=== PATIENT | male | born 1970 | race Caucasian/White ===

== ENCOUNTER 2019-07-25 19:55 | Emergency (ER) | payer BC ==
[2019-07-25 20:01] VITALS: TEMP 97.9
[2019-07-25] MEDS ORDERED: ASPIRIN 81 MG PO STA (20:26)
[2019-07-25] MEDS ORDERED: NITROGLYCERIN SL TABS 0.4 MG TAB SUBLINGUAL STA (20:27)
--- NOTE | 2019-07-25 20:29 | ED ---
Chest Pain HPI - General Chief Complaint: Chest Pain Stated Complaint: Chest Pain Time Seen by Provider: 07/25/19 20:03 Source: patient, RN notes reviewed Mode of arrival: ambulatory Limitations: no limitations - History of Present Illness Initial Comments: This is a 49-year-old male with a benign history other than high cholesterol who presents with complaints of the onset of chest pain today reading from his chest to his back and some left arm pressure. He states this happened after walk states over last 3 or 4 days he has been feeling well he has been having some chest pain. He also noted his blood pressure was elevated today 160/95. He's got no known history of heart disease nonsmoker no family history of heart disease early age no family history of lung or aortic dysfunction at early age. He has been doing some yardwork but no other heavy activity he does work as a psychiatrist and has not been seen his medications as usual. His been doing teleconferencing and some office visits. No cough fevers chills sweats sore throat rhinorrhea or other symptoms. Of note patient does state he had been on acute or diarrhea over last year lost about 40 pounds. MD Complaint: chest pain - Related Data Allergies Allergy/AdvReac Type Severity Reaction Status Date / Time No Known Allergies Allergy Verified 07/25/19 20:00 Review of Systems ROS Statement: Those systems with pertinent positive or pertinent negative responses have been documented in the HPI. ROS Other: All systems not noted in ROS Statement are negative. EKG Findings - EKG Results: EKG: interpreted by [facility], sinus rhythm (Normal sinus rhythm of 82. Interval 166 QRS duration 96 QT since QTC 370/[address]-T wave changes.) Past Medical History Past Medical History: Hyperlipidemia History of Any Multi-Drug Resistant Organisms: None Reported Past Surgical History: No Surgical Hx Reported Past Psychological History: No Psychological Hx Reported Smoking Status: Never smoker Past Alcohol Use History: Rare Past Drug Use History: None Reported General Exam - General Exam Comments Initial Comments: This is a well-developed well-nourished awake alert oriented 3 male Limitations: no limitations General appearance: alert, in no apparent distress Head exam: Present: atraumatic, normocephalic, normal inspection Eye exam: Present: normal appearance, PERRL, EOMI. Absent: scleral icterus, conjunctival injection, periorbital swelling ENT exam: Present: normal exam, mucous membranes moist Neck exam: Present: normal inspection, full ROM, other (No stridor JVD or bruits). Absent: tenderness, meningismus, lymphadenopathy Respiratory exam: Present: normal lung sounds bilaterally, chest wall tenderness (Some mild tenderness over the right pectoralis musculature no left-sided chest pain or chest wall pain. This is to palpation.). Absent: respiratory distress, wheezes, rales, rhonchi, stridor Cardiovascular Exam: Present: regular rate, normal rhythm, normal heart sounds. Absent: systolic murmur, diastolic murmur, rubs, gallop, clicks GI/Abdominal exam: Present: soft, normal bowel sounds. Absent: distended, tenderness, guarding, rebound, rigid, bruit, pulsatile mass Extremities exam: Present: normal inspection, full ROM, normal capillary refill. Absent: tenderness, pedal edema, joint swelling, calf tenderness Back exam: Present: normal inspection Neurological exam: Present: alert, oriented X3, CN II-XII intact Psychiatric exam: Present: normal affect, normal mood Skin exam: Present: warm, dry, intact, normal color. Absent: rash Course Vital Signs 07/25/19 07/25/19 07/25/19 19:56 21:00 22:00 Temperature 97.9 F Pulse Rate 90 89 71 Respiratory 18 14 14 Rate Blood Pressure 163/88 135/95 127/79 O2 Sat by Pulse 99 94 L 95 Oximetry Chest Pain MDM - MDM I did review the imaging and report no acute findings. Patient is showing improved we did have a very long discussion regarding the findings and the possible etiologies of the discomfort. He did have reproducible chest pain in the right side over the pectoralis muscles. He was offered admission and would rather follow palpation. At this time this is not unreasonable. Patient will be discharged with follow-up with cardiology. Was instructed to call tomorrow. He has are in agreement. The patient is acquainted with Dr. Tam will follow-up with him tomorrow additionally did recommend a baby aspirin daily until he sees cardiology. Disposition Clinical Impression: Atypical chest pain Disposition: HOME SELF-CARE Condition: Good Instructions (If sedation given, give patient instructions): Chest Pain (ED) Is patient prescribed a controlled substance at d/c from ED?: No Referrals: None,Stated [Primary Care Provider] - 1-2 days Marina Tam MD [STAFF PHYSICIAN] - 1-2 days
--- NOTE | 2019-07-25 20:33 | XR ---
EXAMINATION TYPE: XR chest 2V DATE OF EXAM: 07/25/2019 COMPARISON: NONE HISTORY: Chest pain for 2 days with left arm numbness. TECHNIQUE: Frontal and lateral views of the chest are obtained. FINDINGS: Overlying EKG leads are present. There is no focal air space opacity, pleural effusion, or pneumothorax seen. The cardiac silhouette size is within normal limits. The osseous structures are intact. IMPRESSION: No acute process.
[2019-07-25 21:09] LABS: Basophils # (A) 0.1 k/uL (0-0.2); Basophils % (A) 1 %; Eosinophils # (A) 0.2 k/uL (0-0.7); Eosinophils % (A) 2 %; HCT 47.4 % (39.0-53.0); HGB 15.5 gm/dL (13.0-17.5); Lymphocytes # (A) 3.2 k/uL (1.0-4.8); Lymphocytes % (A) 32 %; MCH 28.9 pg (25.0-35.0); MCHC 32.8 g/dL (31.0-37.0); MCV 88.2 fL (80.0-100.0); Mean Platelet Volume 6.8; Monocytes # (A) 0.7 k/uL (0-1.0); Monocytes % (A) 7 %; Neutrophils # (A) 5.3 k/uL (1.3-7.7); Neutrophils % (A) 54 %; Platelet Count 270 k/uL (150-450); RBC 5.37 m/uL (4.30-5.90); RDW 12.8 % (11.5-15.5); WBC 9.8 k/uL (3.8-10.6)
[2019-07-25 21:19] LABS: ALT 29 U/L (4-49); AST 40 U/L (17-59); African American GFR (CKD) >90 (>60 ml/min/1.73 sqM); Albumin 4.8 g/dL (3.5-5.0); Alkaline Phosphatase 91 U/L (38-126); Anion Gap 9 mmol/L; Blood Urea Nitrogen 19 mg/dL (9-20); Calcium 9.4 mg/dL (8.4-10.2); Carbon Dioxide 28 mmol/L (22-30); Chloride 101 mmol/L (98-107); Glucose 97 mg/dL (74-99); Magnesium 2.1 mg/dL (1.6-2.3); Non-African American GFR(CKD) 83 (>60 ml/min/1.73 sqM); Potassium 3.9 mmol/L (3.5-5.1); Sodium 138 mmol/L (137-145); Total Bilirubin 0.4 mg/dL (0.2-1.3)
[2019-07-25 21:22] LABS: D-Dimer <0.17 mg/L FEU (<0.60); Partial Thromboplastin Time 24.9 sec (22.0-30.0); Prothrombin Time 10.1 sec (9.0-12.0)
[2019-07-25 22:02] VITALS: BP 127/79; PULSE 71; RESP 14
== END 2019-07-25 22:24 | disposition home or self-care (01) ==
LOC: EC 19:55
DX: R07.89 Other chest pain (principal)
CPT/HCPCS: 36415; 71046; 80053; 83690; 83735; 83880; 84484; 85025; 85379; 85610; 85730; 93005; 99285

== ENCOUNTER → 2019-10-12 | Outpatient (CLI) | payer SELFPAY ==
--- NOTE | 2019-10-13 07:58 | CT ---
EXAMINATION TYPE: CT heart w calcium score DATE OF EXAM: 10/12/2019 COMPARISON: HISTORY: Screening for cardiovascular disorder. 213.9 CT DLP: 44.8 mGycm Automated exposure control for dose reduction was used. CT CALCIUM SCORING Coronary calcium is a marker for plaque (fatty deposits) in a blood vessel or atherosclerosis (harden ing of the arteries). The presence and amount of calcium detected in a coronary artery by the CT sca n, indicates the presence and amount of atherosclerotic plaque. These calcium deposits appear years before the development of heart disease symptoms such as chest pain and shortness of breath. A calcium score is computed for each of the coronary arteries based upon the volume and density of th e calcium deposits. This can be referred to as your calcified plaque burden. It does not correspond directly to the percentage of narrowing in the artery but does correlate with the severity of the un derlying coronary atherosclerosis. PROCEDURE TECHNIQUE - Prospective Gating was used. Slice thickness: 3mm. Density threshold (HU): 130, Pixel threshold: 3, Algorithm: discrete. RESULTS Region: LM Calcium Score (Agatston): 3.68 Volume (mm3): Mass (g): Region: RCA Calcium Score (Agatston): Volume (mm3): Mass (g): Region: LAD Calcium Score (Agatston): Volume (mm3): Mass (g): Region: CX Calcium Score (Agatston): Volume (mm3): Mass (g): Region: PDA Calcium Score (Agatston): Volume (mm3): Mass (g): Total: Calcium Score (Agatston): 3.68 Volume (mm3): 5.52 Mass (g): TOTAL CALCIUM SCORE: 3.68 IMPRESSION: Calcium Score: 3.68 Implication: Minimal identifiable plaque Risk of Coronary Artery Disease: Very unlikely less than 10% risk of coronary artery disease. CALCIUM SCORE IMPLICATION RISK OF C ORONARY ARTERY DISEASE 0 No identifiable plaque Very low, generally less than 5% 1-10 Minimal identifiable plaque Very unlikely, less than 10% 11-100 Definite, at least mild atherosclerotic plaque Mild or m inimal coronary narrowings likely 101-400 Definite, at least moderate atherosclerotic plaque Mild coronary ar li disease highly likely, significant narrowing possible 401 or Higher Extensive atherosclerotic plaque High lik elihood of at least one significant coronary narrowing
== END | disposition home or self-care (01) ==
LOC: RADCTMAIN 18:46
PROVIDERS: ATTEND Internal Medicine Interventional Cardiology
DX: I25.10 Atherosclerotic heart disease of native coronary artery without angina pectoris (principal)
CPT/HCPCS: 75571

== ENCOUNTER 2021-01-06 20:25 | Emergency (ER) | payer BC ==
[2021-01-06] MEDS ORDERED: NITROGLYCERIN SL TABS 0.4 MG TAB SUBLINGUAL STA (21:00)
[2021-01-06 21:20] LABS: Basophils # (A) 0.1 k/uL (0-0.2); Basophils % (A) 1 %; Eosinophils # (A) 0.2 k/uL (0-0.7); Eosinophils % (A) 2 %; HCT 45.7 % (39.0-53.0); HGB 15.6 gm/dL (13.0-17.5); Lymphocytes # (A) 3.3 k/uL (1.0-4.8); Lymphocytes % (A) 31 %; MCH 29.8 pg (25.0-35.0); MCHC 34.2 g/dL (31.0-37.0); MCV 87.2 fL (80.0-100.0); Mean Platelet Volume 6.9; Monocytes # (A) 0.9 k/uL (0-1.0); Monocytes % (A) 8 %; Neutrophils # (A) 5.8 k/uL (1.3-7.7); Neutrophils % (A) 55 %; Platelet Count 265 k/uL (150-450); RBC 5.24 m/uL (4.30-5.90); RDW 12.6 % (11.5-15.5); WBC 10.5 k/uL (3.8-10.6)
[2021-01-06 21:32] LABS: ALT 38 U/L (4-49); African American GFR (CKD) >90 (>60 ml/min/1.73 sqM); Albumin 4.7 g/dL (3.5-5.0); Anion Gap 10 mmol/L; Blood Urea Nitrogen 19 mg/dL (9-20); Carbon Dioxide 25 mmol/L (22-30); Chloride 102 mmol/L (98-107); Creatine Kinase 204 U/L (55-170); Glucose 102 mg/dL (74-99); Lipase 143 U/L (23-300); Non-African American GFR(CKD) 84 (>60 ml/min/1.73 sqM); Sodium 137 mmol/L (137-145); Total Bilirubin 0.9 mg/dL (0.2-1.3); Total Protein 8.2 g/dL (6.3-8.2)
[2021-01-06 21:38] LABS: INR 0.9 (<1.2); Partial Thromboplastin Time 24.6 sec (22.0-30.0); Prothrombin Time 9.9 sec (9.0-12.0)
--- NOTE | 2021-01-06 21:45 | XR ---
EXAMINATION TYPE: XR chest 2V DATE OF EXAM: 01/06/2021 COMPARISON: 07/25/2019 HISTORY: Chest pain TECHNIQUE: FINDINGS: Heart and mediastinum are normal. Lungs are clear. Diaphragm is normal. Bony thorax is inta ct. The pulmonary vascularity is normal. There are chest leads. IMPRESSION: Normal chest. No change.
[2021-01-06 21:47] VITALS: TEMP 97.9
[2021-01-06 21:50] LABS: AST 58 U/L (17-59); Alkaline Phosphatase 121 U/L (38-126)
[2021-01-06 22:23] LABS: Creatine Kinase MB 0.6 ng/mL (0.0-2.4); Troponin I <0.012 ng/mL (0.000-0.034)
--- NOTE | 2021-01-06 22:32 | ED ---
Chest Pain HPI - General Chief Complaint: Chest Pain Stated Complaint: chest pain; left arm tightness Time Seen by Provider: 01/06/21 20:39 Source: patient, RN notes reviewed, old records reviewed Mode of arrival: wheelchair Limitations: no limitations - History of Present Illness Initial Comments: 50-year-old male who presents with complaints of chest discomfort pressure-like in nature also some left neck pain left arm squeezing sensation. 70/10 severity with respect to the chest pressure aspect of it. Seems to be somewhat positional. No fevers chills nausea vomiting sweats. He did have a similar episode back in August 2019 he states. He was evaluated at that time. No complaints fevers chills nausea vomiting sweats at this time he does admit to doing yard work and believes this may be a component of it. MD Complaint: chest pain - Related Data Home Medications Medication Instructions Recorded Confirmed No Known Home Medications 01/06/21 01/06/21 Allergies Allergy/AdvReac Type Severity Reaction Status Date / Time No Known Allergies Allergy Verified 01/06/21 22:44 Review of Systems ROS Statement: Those systems with pertinent positive or pertinent negative responses have been documented in the HPI. ROS Other: All systems not noted in ROS Statement are negative. EKG Findings - EKG Results: EKG: interpreted by [facility], sinus rhythm (Sinus rhythm 81. Interval 174 QRS duration 92 QT since QTC 412/478 possible left atrial enlargement nonspecific anterior configuration currently no old ones for comparison) Past Medical History Past Medical History: Hyperlipidemia History of Any Multi-Drug Resistant Organisms: None Reported Past Surgical History: No Surgical Hx Reported Past Psychological History: No Psychological Hx Reported Smoking Status: Never smoker Past Alcohol Use History: Rare Past Drug Use History: None Reported General Exam - General Exam Comments Initial Comments: This is a well-developed well-nourished awake alert oriented times 3 male Limitations: no limitations General appearance: alert, in no apparent distress Head exam: Present: atraumatic, normocephalic, normal inspection Eye exam: Present: normal appearance, PERRL, EOMI. Absent: scleral icterus, conjunctival injection, periorbital swelling ENT exam: Present: normal exam, mucous membranes moist Neck exam: Present: normal inspection, full ROM, other (Genitourinary bruits). Absent: tenderness, meningismus, lymphadenopathy Respiratory exam: Present: normal lung sounds bilaterally. Absent: respiratory distress, wheezes, rales, rhonchi, stridor Cardiovascular Exam: Present: regular rate, normal rhythm, normal heart sounds. Absent: systolic murmur, diastolic murmur, rubs, gallop, clicks GI/Abdominal exam: Present: soft, normal bowel sounds. Absent: distended, tenderness, guarding, rebound, rigid Extremities exam: Present: normal inspection, full ROM, normal capillary refill. Absent: tenderness, pedal edema, joint swelling, calf tenderness Back exam: Present: normal inspection Neurological exam: Present: alert, oriented X3, CN II-XII intact Psychiatric exam: Present: normal affect, normal mood Skin exam: Present: warm, dry, intact, normal color. Absent: rash Course Vital Signs 01/06/21 01/06/21 01/06/21 20:25 21:45 21:47 Temperature 98.1 F 97.9 F Pulse Rate 78 75 Respiratory 16 16 Rate Blood Pressure 171/99 151/87 O2 Sat by Pulse 99 96 Oximetry 01/06/21 21:49 Temperature Pulse Rate 88 Respiratory 17 Rate Blood Pressure 138/83 O2 Sat by Pulse 94 L Oximetry - Reevaluation(s) Reevaluation #1: 01/06/21 22:36 Initial reevaluation the patient he did get relief after nitroglycerin he does state his mother does have a history of esophageal issues and does query whether he may have similar. Chest Pain MDM - MDM Imaging reviewed no acute findings. I did a long discussion the patient's regarding findings patient's symptom free at this time there is a component of reproducibility and musculoskeletal contribution to the presentation tonight's unclear if that is the entire case. After long discussions the patient would like to be discharged home with follow-up with Dr. Tam the office we did discuss return parameters and return if anything did not seem satisfactory in his mind. His is in agreement with it. We did discuss possibility of admission but he would prefer to continue his outpatient. Disposition Clinical Impression: Atypical chest pain Disposition: HOME SELF-CARE Condition: Good Instructions (If sedation given, give patient instructions): Chest Pain (ED) Is patient prescribed a controlled substance at d/c from ED?: No Referrals: Veronique Alvarez III, MD [Primary Care Provider] - 1-2 days
[2021-01-06 23:44] VITALS: BP 145/86; PULSE 70; RESP 16
== END 2021-01-06 23:44 | disposition home or self-care (01) ==
LOC: EC 20:25
DX: R07.89 Other chest pain (principal); M54.2 Cervicalgia; M79.602 Pain in left arm; E78.5 Hyperlipidemia, unspecified
CPT/HCPCS: 36415; 71046; 80053; 82550; 82553; 83690; 83735; 83880; 84484; 85025; 85379; 85610; 85730; 93005; 99285

== ENCOUNTER → 2021-02-23 | Outpatient (CLI) | payer BC ==
[2021-02-23 12:03] LABS: BUN/Creat Ratio 10.28 Ratio (12.00-20.00); Blood Urea Nitrogen 11.1 mg/dL (9.0-27.0); Carbon Dioxide 27.4 mmol/L (21.6-31.8); Chloride 102 mmol/L (96-109); Chol/HDL Ratio 3.28 Ratio; Glucose 109 mg/dL (70-110); LDL Cholesterol,Calculated 55.7 mg/dL (0.0-131.0); Potassium 4.4 mmol/L (3.5-5.5); Sodium 142 mmol/L (135-145); VLDL Calculation 15.94 mg/dL (5.00-40.00)
[2021-02-23 12:04] LABS: ALT 31 U/L (10-49); AST 31 U/L (14-35); Albumin 4.8 g/dL (3.8-4.9); Albumin/Globulin Ratio 1.75 (1.60-3.17); Alkaline Phosphatase 112 U/L (41-126); Calcium 9.8 mg/dL (8.7-10.3); Globulin 2.7 g/dL (1.6-3.3); Non-African American GFR(CKD) 78.5 (60.0-200.0); Total Protein 7.5 g/dL (6.2-8.2)
== END | disposition home or self-care (01) ==
LOC: LABWHC1 08:32
PROVIDERS: ATTEND Internal Medicine Interventional Cardiology
DX: E78.2 Mixed hyperlipidemia (principal)
CPT/HCPCS: 36415; 80053; 80061

== ENCOUNTER 2021-08-28 10:01 | Day surgery (SDC) | payer BC ==
[2021-08-28] MEDS ORDERED: LACTATED RINGERS 1,000 ML IV ONE (10:25)
[2021-08-28 10:30] VITALS: RESP 18; TEMP 97.6
[2021-08-28] MEDS ORDERED: PROPOFOL 10 MG/ML 20 ML VIAL IV ONE (11:15)
--- NOTE | 2021-08-28 11:35 | P.PCN ---
Date of Procedure: 08/28/21 Procedure(s) Performed: BRIEF HISTORY: Patient is a 51-year-old pleasant white male scheduled for an elective colonoscopy as a part of positive cologuard. PROCEDURE PERFORMED: Colonoscopy. PREOPERATIVE DIAGNOSIS: Positive cologuard. IV sedation per Anesthesia. PROCEDURE: After informed consent was obtained, the patient, was brought into the endoscopy unit. IV sedation was administered by Anesthesia under continuous monitoring. Digital rectal examination was normal. Initially the Olympus CF-160 flexible video colonoscope was then inserted in the rectum, gradually advanced into the cecum without any difficulty. Careful examination was performed as the scope was gradually being withdrawn. Ileocecal valve and the appendiceal orifice were visualized and appeared normal. Prep was excellent. Mucosa of the cecum, ascending colon, transverse colon, descending colon, sigmoid colon, and rectum appeared normal. Retroflexion was performed in the rectum and no lesions were seen. The patient tolerated the procedure well. IMPRESSION: Normal-appearing colon from rectum to cecum with no evidence of colorectal neoplasia . RECOMMENDATIONS: Findings of this examination were discussed with the patient family. He was advised to have a repeat screening colonoscopy in 10 years..
[2021-08-28 12:09] VITALS: BP 122/77; PULSE 73
== END 2021-08-28 12:31 | disposition home or self-care (01) ==
LOC: ORWHC2ENDO 10:01
PROVIDERS: ATTEND Internal Medicine Gastroenterology
DX: R19.5 Other fecal abnormalities (principal)
CPT/HCPCS: 45378; J2704

== ENCOUNTER → 2021-09-07 | Outpatient (CLI) | payer BC ==
[2021-09-07 11:36] LABS: ALT 19 U/L (10-49); AST 22 U/L (14-35); African American GFR (CKD) 80.1 (60.0-200.0); Albumin 4.7 g/dL (3.8-4.9); Albumin/Globulin Ratio 1.74 (1.60-3.17); Alkaline Phosphatase 102 U/L (41-126); BUN/Creat Ratio 11.42 Ratio (12.00-20.00); Blood Urea Nitrogen 13.7 mg/dL (9.0-27.0); Calcium 9.6 mg/dL (8.7-10.3); Carbon Dioxide 25.9 mmol/L (20.0-27.5); Chloride 102 mmol/L (96-109); Globulin 2.7 g/dL (1.6-3.3); Glucose 101 mg/dL (70-110); LDL Cholesterol,Calculated 64.4 mg/dL (0.0-131.0); Non-African American GFR(CKD) 69.1 (60.0-200.0); Potassium 4.5 mmol/L (3.5-5.5); Sodium 139 mmol/L (135-145); Total Protein 7.4 g/dL (6.2-8.2); VLDL Calculation 13.56 mg/dL (5.00-40.00)
== END | disposition home or self-care (01) ==
LOC: LABWHC1 07:59
PROVIDERS: ATTEND Internal Medicine Interventional Cardiology
DX: I10 Essential (primary) hypertension (principal); E78.2 Mixed hyperlipidemia
CPT/HCPCS: 36415; 80053; 80061

== ENCOUNTER → 2022-06-28 | Outpatient (CLI) | payer BC ==
[2022-06-28 16:27] LABS: Basophils # (A) 0.06 X 10*3/uL (0.00-0.10); Basophils % (A) 0.8 %; Eosinophils # (A) 0.16 X 10*3/uL (0.04-0.35); Eosinophils % (A) 2.2 %; HCT 47.9 % (39.6-50.0); HGB 15.5 g/dL (13.0-17.0); Immature Grans, Automated 0.4 %; Lymphocytes # (A) 1.68 X 10*3/uL (0.90-5.00); Lymphocytes % (A) 23.3 %; MCH 29.2 pg (27.0-32.0); MCHC 32.4 g/dL (32.0-37.0); MCV 90.2 fL (80.0-97.0); Mean Platelet Volume 9.6 fL (9.5-12.2); Monocytes # (A) 0.91 X 10*3/uL (0.20-1.00); Monocytes % (A) 12.6 %; NRBC Per 100 WBC 0 /100 WBCS (0.0-0.0); Neutrophils # (A) 4.38 X 10*3/uL (1.80-7.70); Neutrophils % (A) 60.7 %; Platelet Count 247 X 10*3/uL (140-440); RBC 5.31 X 10*6/uL (4.40-5.60); RDW 12.7 % (11.5-14.5); WBC 7.22 X 10*3/uL (4.50-10.00)
[2022-06-28 19:09] LABS: ALT 29 U/L (10-49); AST 34 U/L (14-35); African American GFR (CKD) 88.4 (60.0-200.0); Albumin 4.9 g/dL (3.8-4.9); Albumin/Globulin Ratio 1.75 (1.60-3.17); Alkaline Phosphatase 98 U/L (41-126); BUN/Creat Ratio 15.55 Ratio (12.00-20.00); Blood Urea Nitrogen 17.1 mg/dL (9.0-27.0); Calcium 9.9 mg/dL (8.7-10.3); Carbon Dioxide 25.3 mmol/L (20.0-27.5); Chloride 101 mmol/L (96-109); Chol/HDL Ratio 2.93 Ratio; Globulin 2.8 g/dL (1.6-3.3); Glucose 100 mg/dL (70-110); LDL Cholesterol,Calculated 89.6 mg/dL (0.0-131.0); Non-African American GFR(CKD) 76.2 (60.0-200.0); Potassium 4.5 mmol/L (3.5-5.5); Sodium 139 mmol/L (135-145); Total Protein 7.7 g/dL (6.2-8.2); VLDL Calculation 16.52 mg/dL (5.00-40.00)
== END | disposition home or self-care (01) ==
LOC: LABWHC1 08:29
PROVIDERS: ATTEND Family Medicine
DX: I10 Essential (primary) hypertension (principal); F43.21 Adjustment disorder with depressed mood; E78.2 Mixed hyperlipidemia; M25.512 Pain in left shoulder; S46.092A Other injury of muscle(s) and tendon(s) of the rotator cuff of left shoulder, initial encounter; Y99.9 Unspecified external cause status
CPT/HCPCS: 36415; 80053; 80061; 84153; 85025

== ENCOUNTER → 2023-06-15 | Outpatient (CLI) | payer BC ==
[2023-06-15 11:04] LABS: Basophils # (A) 0.05 X 10*3/uL (0.00-0.10); Basophils % (A) 0.6 %; Eosinophils # (A) 0.13 X 10*3/uL (0.04-0.35); Eosinophils % (A) 1.6 %; HCT 46.4 % (39.6-50.0); HGB 15.3 g/dL (13.0-17.0); Lymphocytes # (A) 2.27 X 10*3/uL (0.90-5.00); Lymphocytes % (A) 27.4 %; MCH 28.4 pg (27.0-32.0); MCV 86.1 FL (80.0-97.0); Mean Platelet Volume 9.3 FL (9.5-12.2); Monocytes # (A) 0.88 X 10*3/uL (0.20-1.00); Monocytes % (A) 10.6 %; NRBC Per 100 WBC 0 X 10*3/uL (0.00-0.01); Neutrophils # (A) 4.91 X 10*3/uL (1.80-7.70); Neutrophils % (A) 59.2 %; Platelet Count 292 X 10*3/uL (140-440); RBC 5.39 X 10*6/uL (4.40-5.60); RDW 12.6 % (11.5-14.5); WBC 8.29 X 10*3/uL (4.50-10.00)
[2023-06-15 11:25] LABS: ALT 26 U/L (10-49); AST 30 U/L (14-35); Albumin 4.5 g/dL (3.8-4.9); Albumin/Globulin Ratio 1.61 Ratio (1.60-3.17); Alkaline Phosphatase 121 U/L (41-126); BUN/Creat Ratio 15.67 Ratio (12.00-20.00); Blood Urea Nitrogen 18.8 mg/dL (9.0-27.0); Calcium 9.4 mg/dL (8.7-10.3); Carbon Dioxide 25.4 mmol/L (21.6-31.8); Chloride 103 mmol/L (96-109); Chol/HDL Ratio 3.75 Ratio; Globulin 2.8 g/dL (1.6-3.3); Glucose 108 mg/dL (70-110); LDL Cholesterol,Calculated 93.3 mg/dL (0.0-131.0); Magnesium 2.1 mg/dL (1.5-2.4); Potassium 4.4 mmol/L (3.5-5.5); Sodium 140 mmol/L (135-145); Total Bilirubin 0.6 mg/dL (0.3-1.2); Total Protein 7.3 g/dL (6.2-8.2); Uric Acid 4.9 mg/dL (3.7-8.7)
== END | disposition home or self-care (01) ==
LOC: LABWHC1 06:58
PROVIDERS: ATTEND Internal Medicine
DX: I10 Essential (primary) hypertension (principal); E78.2 Mixed hyperlipidemia
CPT/HCPCS: 36415; 80053; 80061; 83036; 83735; 84443; 84550; 85025

== ENCOUNTER 2024-07-26 19:38 | Emergency (ER) | payer BC, OTHER ==
[2024-07-26 19:50] VITALS: TEMP 98.3
[2024-07-26] MEDS: SODIUM CHLORIDE 0.9% 1,000 ML IV STA (19:59)
[2024-07-26 20:01] LABS: Basophils # (A) 0.06 10*3/uL (0.00-0.10); Basophils % (A) 0.6 %; Eosinophils # (A) 0.24 10*3/uL (0.04-0.35); Eosinophils % (A) 2.2 %; HGB 15.4 g/dL (13.0-17.0); Lymphocytes # (A) 3.83 10*3/uL (0.90-5.00); Lymphocytes % (A) 35.9 %; MCH 29.3 pg (27.0-32.0); MCV 83.7 fL (80.0-97.0); Mean Platelet Volume 8.7 fL (9.5-12.2); Monocytes # (A) 1.14 10*3/uL (0.20-1.00); Monocytes % (A) 10.7 %; Neutrophils # (A) 5.35 10*3/uL (1.80-7.70); Platelet Count 292 10*3/uL (140-440); RBC 5.26 10*6/uL (4.40-5.60); RDW 12.7 % (11.5-14.5); WBC 10.68 10*3/uL (4.50-10.00)
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
[2024-07-26 20:13] LABS: ALT 29 U/L (4-49); AST 32 U/L (17-59); African American GFR (CKD) >90 (>60 ml/min/1.73 sqM); Albumin 4.6 g/dL (3.5-5.0); Alcohol <10 mg/dL; Alkaline Phosphatase 121 U/L (38-126); Anion Gap 10 mmol/L; Blood Urea Nitrogen 19 mg/dL (9-20); Calcium 9.3 mg/dL (8.4-10.2); Carbon Dioxide 26 mmol/L (22-30); Chloride 101 mmol/L (98-107); Glucose 115 mg/dL (74-99); Non-African American GFR(CKD) 81 (>60 ml/min/1.73 sqM); Potassium 3.8 mmol/L (3.5-5.1); Sodium 137 mmol/L (137-145); Total Bilirubin 0.9 mg/dL (0.2-1.3); Total Protein 7.5 g/dL (6.3-8.2)
[2024-07-26 20:16] LABS: INR 0.9 (<1.2); Partial Thromboplastin Time 23.9 sec (22.0-30.0); Prothrombin Time 10.5 sec (10.0-12.5)
[2024-07-26] MEDS: DIPH,PERTUS(ACELL)TETVAC-LF 0.5 ML VIAL IM ONE (20:21)
[2024-07-26] MEDS: ONDANSETRON 4 MG/2 ML VIAL IVP STA (20:22)
[2024-07-26] MEDS: HYDROmorphone 1 MG/ML 1 ML SYRINGE IVP STA (20:27)
[2024-07-26] MEDS: ACETAMINOPHEN IV (For NPO) 1,000 MG in EMPTY BAG 1 BAG IVPB STA (20:30)
[2024-07-26] MEDS: TRANEXAMIC 1,000 MG/100ML-NACL 1,000 MG in SALINE 1 100ML.BAG IV STA (20:33)
[2024-07-26 20:41] LABS: Amphetamine Screen,Urine Not Detected (NotDetected); Barbiturate Screen,Urine Not Detected (NotDetected); Benzodiazepines Screen,Urine Not Detected (NotDetected); Cocaine Screen,Urine Not Detected (NotDetected); Methadone Screen, Urine Not Detected (NotDetected); Opiate Screen,Urine Not Detected (NotDetected); Oxycodone Screen, Urine Not Detected (NotDetected); Phencyclidine Screen,Urine Not Detected (NotDetected); Tricyclic Antidepressant,Urine Not Detected (NotDetected); Urn Cannabinoid Scrn Not Detected (NotDetected)
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
[2024-07-26 20:45] VITALS: BP 128/92; PULSE 89; RESP 18
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
== END 2024-07-26 20:42 | disposition other institution (70) ==
LOC: EC 19:38
DX: S32.9XXA Fracture of unspecified parts of lumbosacral spine and pelvis, initial encounter for closed fracture (principal); T07.XXXA Unspecified multiple injuries, initial encounter; Z23 Encounter for immunization; V29.408A Other motorcycle driver injured in collision with unspecified motor vehicles in traffic accident, initial encounter; Y92.410 Unspecified street and highway as the place of occurrence of the external cause
CPT/HCPCS: 36415; 93005; 86900; 86901; 80053; 83605; 84484; 85025; 85610; 85730; 86850; 80306; 80320; 72170; 71045; 72125; 70450; 71260; 74177; 90715; 99291; 90471; 96374; 96375 ×3; 96361; J2405; J1171; J0131; Q9967